=== PATIENT | female | born 1995 | race Caucasian/White ===

== ENCOUNTER → 2023-10-17 14:37 | Outpatient (CLI) | payer OTHER, SELFPAY ==
[2023-10-17 17:04] LABS: Appearance Urine UA CLEAR; Bilirubin Urine UA NEGATIVE (NEGATIVE); Color Urine UA YELLOW; Glucose Urine UA NEGATIVE (Negative); Ketones Urine UA NEGATIVE (NEGATIVE); Leukocyte Esterase Urine UA 1+ (NEGATIVE); Nitrite Urine UA NEGATIVE (Negative); Occult Blood Urine UA NEGATIVE (Negative); Protein Urine UA NEGATIVE (Negative); Specific Gravity Urine UA <=1.005 (1.000-1.035); Urobilinogen Urine UA 0.2 E.U./dL (0.2)
[2023-10-17 17:13] LABS: Bacteria Urine Occasional (0-1); RBC Urine None Seen (0-5/HPF); Squamous Epithelial Cell Urine 5-10 /HPF (0-5/HPF); Urine Volume 10mL (spun); WBC Urine 5-10/HPF (0-5/HPF)
== END ==
PROVIDERS: Visit Provider Student in an Organized Health Care Education/Training Program
DX: Z34.00 Encounter for supervision of normal first pregnancy, unspecified trimester (principal)
CPT/HCPCS: 81003; 81015; 87086

== ENCOUNTER → 2023-10-24 14:01 | Outpatient (CLI) | payer OTHER, SELFPAY ==
[2023-10-24 14:51] LABS: Hemoglobin A1C% w Est Avg Glu 4.8 % (4.0-6.0)
[2023-10-24 14:55] LABS: Add Manual Diff / Slide Review NO; Basophils Absolute Auto 0 /uL (0-100); Basophils Percent Auto 0.2 % (0-2); Eosinophils Absolute Auto 0 /uL (0-450); Eosinophils Percent Auto 0.4 % (2-4); Hematocrit 38.7 % (36-46); Hemoglobin 13.1 g/dL (12.0-16.0); Lymphocytes Absolute Auto 1400 /uL (1100-4500); Lymphocytes Percent Auto 14.1 % (25-40); Mean Corpuscular HGB Conc 33.8 % (30-36); Mean Corpuscular Hemoglobin 31.3 PG (26-34); Mean Corpuscular Volume 92.7 fL (80-100); Monocytes Absolute Auto 500 /uL (0-900); Monocytes Percent Auto 4.9 % (3-14); Neutrophils Absolute Auto 8100 /uL (1500-7000); Neutrophils Percent Auto 80.4 % (50-75); Platelet Count 204 X10^3/uL (150-400); Red Blood Cell Count 4.17 X10^6/uL (4.0-5.2); Red Cell Distribution Width 13.2 % (11.6-14.8); White Blood Cell Count 10.1 X10^3/uL (4.5-11.0)
[2023-10-24 15:09] LABS: Natera Collection Specimen Collected
[2023-10-24 17:13] LABS: Hepatitis B Surface Antigen NEGATIVE s/c (NEGATIVE); Rubella Antibody IgG 29.6 IU/mL (>15)
[2023-10-24 17:21] LABS: HIV 1 & 2 Ab/Ag 4th Gen Combo NEGATIVE (NEGATIVE); Hep C Virus Ab w/Reflex Quant NEGATIVE s/c (NEGATIVE)
[2023-10-25 04:36] LABS: RPR Screen Non Reactive (Non Reactive)
[2023-10-25 09:16] LABS: Varicella IgG Antibody 1798 index (Immune >165)
== END ==
PROVIDERS: Referring Provider Student in an Organized Health Care Education/Training Program; Visit Provider Student in an Organized Health Care Education/Training Program
DX: Z34.00 Encounter for supervision of normal first pregnancy, unspecified trimester (principal); E28.2 Polycystic ovarian syndrome
CPT/HCPCS: 36415; 80055; 83036; 86787; 86803; 86850; 86900; 86901; 87389

== ENCOUNTER 2023-11-06 19:03 | Emergency (ER) | payer OTHER, SELFPAY ==
[2023-11-06 19:09] VITALS: BP 120/72; PULSE 93; RESP 18; TEMP 37; O2SAT 98; BMI 27.8
[2023-11-06 21:13] VITALS: BP 131/75; PULSE 86; RESP 16; O2SAT 100
[2023-11-06 21:14] VITALS: PULSE 86; RESP 16; O2SAT 100
[2023-11-06 21:30] VITALS: PULSE 85; RESP 14; O2SAT 100
[2023-11-06 22:00] VITALS: BP 118/64; PULSE 89; RESP 16; O2SAT 100
--- NOTE | 2023-11-06 22:14 | ED_ITS ---
HPI - Dental/Oral General Chief complaint: Dental/Oral Stated complaint: fever/swollen lymph nodes Time Seen by Provider: 11/06/23 21:14 Mode of arrival: Ambulatory History of Present Illness HPI Narrative: 28-year-old female presents for fevers at home with sore throat and swollen lymph nodes. Also reports associated white spots on her right gums. She was an appointment with her dentist tomorrow, but since she was 12 weeks she decided to present for general evaluation to make sure that nothing would affect the . She denies abdominal pain, cramping, vaginal bleeding, other complaints. Has been taking Tylenol for fever at home. Related Data Home Medications Medication Instructions Recorded Confirmed omega 8-qgu-riw-fish oil 100 cap PO 09/19/23 10/17/23 mg-160 mg-1,000 mg capsule (Fish Oil) vitamin-ferrous sulfate tab PO 09/19/23 10/17/23 27 mg iron-folic acid 0.8 mg tablet Allergies Allergy/AdvReac Type Severity Reaction Status Date / Time No Known Drug Allergies Allergy Unverified 10/17/23 14:26 Patient History Surgical History History of tonsillectomy (~2001) History of tooth extraction Family History Mother PCOS (polycystic ovarian syndrome) Grandmother Coagulopathy Father Hypertension Kidney stones Blood disorder Grandfather Heart disease Sister PCOS (polycystic ovarian syndrome) Sister Iron deficiency anemia Social History marital status: number of children: 0 household members: spouse lives independently: No caregiver/support person: No housing: house pets and animals: Yes (2 dogs) education level: college (some college, working on bachelor's degree) 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 current occupational exposures/hazards: No special wilfred needs: No travel history: recent (domestic; further domestic travel upcoming) seatbelt use: always water heater temp set < 120 deg: Yes working smoke detector in home: Yes fire extinguisher in home: Yes carbon monox detector in home: Yes firearms in home: No do you feel safe at home: Yes Smoking Status: Never smoker second hand exposure: No alcohol intake: former (~1 glass wine/week when not ) substance use type: does not use during the past year weight has: decreased > 10 lbs (intentional w/ diet, exercise, and semaglutide) well-balanced diet: about half the time daily servings fruits/ve-4 caffeine: Yes (small AM cup coffee) Type(s) of exercise: walking Smoking Status: Never smoker Exam Initial Vital Signs Initial Vital Signs: Vital Signs Temperature 98.6 F 11/06/23 19:09 Pulse Rate 93 H 11/06/23 19:09 Respiratory Rate 18 11/06/23 19:09 Blood Pressure 120/72 11/06/23 19:09 Pulse Oximetry 98 11/06/23 19:09 Oxygen Delivery Method Room Air 11/06/23 19:09 Const: Awake, alert, no acute distress, nontoxic appearing HEENT: Mucous membranes moist, mild pharyngeal erythema without edema or exudates, small white nodules on L maxilary gumline Cardiac: regular rate, regular rhythm RESP: unlabored, clear bilaterally, no wheezing GI: Soft, nontender, nondistended, no rebound, no guarding Skin: Warm, Dry, intact, no rashes Neuro: AO x3, CN II-XII grossly intact, moves all extremities Course Vital Signs Vital signs: Vital Signs - 8 hr 11/06/23 19:09 11/06/23 21:13 11/06/23 21:14 Temperature 98.6 F Pulse Rate 93 H 86 86 Respiratory Rate 18 16 16 Blood Pressure 120/72 131/75 Pulse Oximetry 98 100 100 Oxygen Delivery Method Room Air Room Air 11/06/23 21:30 11/06/23 22:00 Temperature Pulse Rate 85 89 Respiratory Rate 14 16 Blood Pressure 118/64 Pulse Oximetry 100 100 Oxygen Delivery Method Room Air MDM - Dental/Oral Lab Data Labs: Urine Dip Bedside Urine Glucose Negative Bedside Urine Bilirubin - Negative Bedside Urine Ketone - Negative Urine Specific [place] 1.010 Bedside Urine Occult Blood - Negative Bedside Urine pH 6.0 Bedside Urine Protein - Negative Bedside Urine Urobilinogen - Negative Bedside Urine Nitrite - Negative Bedside Urine Leukocytes - Negative Esterase MDM Narrative Medical decision making narrative: Well-appearing patient with the above complaint. Physical exam is relatively unremarkable, I do noticed white spots on the gumline, however these do not appear to be acute infection or developing abscess. Dentition is overall good with very few, if any caries. Rapid strep negative, exam not consistent with streptococcal disease. Likely viral in nature. Patient counseled to continue to take Tylenol as needed for fever, to drink plenty of fluids for hydration, but overall anticipate recovery in several days without issue. Counseled to f davidlow up with dentist if the white spots on the gumline persist. Discharge Plan Departure Patient Disposition: Home Clinical Impression: Pharyngitis, Gingivitis Instructions: DI for Pharyngitis/Tonsillopharyngitis -- Adult Activity Restrictions/Additional Instructions: Your exam today is reassuring. I do not see any evidence of an acute bacterial infection at this time. Continue to take Tylenol as needed for fever, use the mouthwash that you have to help prevent infection of your gums and teeth. Make sure to stay hydrated by drinking plenty of fluids. Follow up as needed with your OBGYN Prescriptions: No Action vit-ferrous sulfat-FA 27 mg iron- 0.8 mg tablet PO Fish Oil 100-160-1,000 mg capsule PO Referrals: Miscellaneous,Doctor, MD [Primary Care Provider] - Stand Alone Forms: Patient Portal/API, Work Release Note
== END 2023-11-06 22:24 | disposition home or self-care (01) ==
PROVIDERS: Emergency Provider Emergency Medicine
DX: J02.9 Acute pharyngitis, unspecified (principal); K05.10 Chronic gingivitis, plaque induced
CPT/HCPCS: 81003; 99282

== ENCOUNTER 2023-11-10 10:54 | Emergency (ER) | payer OTHER, SELFPAY ==
[2023-11-10 11:24] VITALS: BP 140/91; PULSE 102; RESP 20; TEMP 36.6; O2SAT 99; BMI 27.3
== END 2023-11-10 11:35 | disposition left against medical advice (07) ==
PROVIDERS: Emergency Provider Emergency Medicine
CPT/HCPCS: 99281

== ENCOUNTER → 2024-01-02 15:07 | Outpatient (CLI) | payer OTHER, SELFPAY ==
--- NOTE | 2024-01-02 15:08 | DI.US.S_ITS ---
PROCEDURE: US OB >= 14 WEEKS FETUS INDICATIONS: 20 week Anatomy Scan OUTSIDE/PRIOR DATING DATA: Last menstrual period (LMP): 08/13/2023. LMP-based estimated date of delivery (JENNYFER): 05/19/2024. First dating scan (date and location): 10/17/2023. Estimated date of delivery (JENNYFER) from first dating scan: 05/16/2024. The calculations are made using the clinical JENNYFER of 05/19/2024. TECHNIQUE: Real-time scanning was performed of the fetus, with image documentation and biometric measurements. COMPARISON: None. FINDINGS: General: A single living intrauterine gestation is present. Presentation: Breech Placenta: Placental position is anterior , without previa. Amniotic fluid index: 17.6 cm, normal range is 5-24 cm. Single deepest vertical pocket is 5 cm. heart rate: 153 beats per minute. Maternal cervical canal: 3.4 cm long. Normal lower limit is 2.5 cm. biometrics: Biparietal diameter: 5.2 cm 21 weeks 5 days Head circumference: 18.7 cm 21 weeks 0 days Abdominal circumference: 17.9 cm 22 weeks 5 days Femur length: 3.5 cm 21 weeks 0 days Clinically estimated gestational age: 20 weeks 2 days Composite gestational age from present scan: 21 weeks 4 days Estimated weight and percentile: 450 g 99th percentile Anatomic survey: Neuro: Ventricles are non-dilated at less than 10 mm. Cisterna magna is normal at 3-11 mm. Cerebellum is normal in size and morphology. Nuchal skin fold: Normal at less than 6 mm between 14-21 weeks gestational age. Face: Nose and lips, facial profile are normal. Spine: No evidence for spina bifida. Heart: 4-chambered heart is present, with normal ventricular outflow tracts. Diaphragm: Diaphragm is intact. Stomach: Left-sided stomach is present. Kidneys: No hydronephrosis. Normal is less than 5 mm in 2nd trimester, less than 7 mm in 3rd trimester. Cord: 3-vessel cord has orthotopic insertion. Bladder: Normal in size. Extremities: All 4 extremities identified. IMPRESSION: Live intrauterine with gestational age today of 21 weeks 4 days. Anatomy is within normal limits. weight is at the 99th percentile. Recommend continued interval follow-up. We strive to produce accurate, complete, and clear reports of imaging services. To assist us in improving patient care, this report was composed using standard report templates and voice recognition software. Therefore, it may contain abnormal punctuation, insertions and/or omissions. Occasional wrong-word or sound-alike substitutions may occur. Though we review the report and make efforts to correct it, we do recommend that the report be read carefully in proper context to recognize any text inaccuracies. Dictated by: Anabelle Page M.D. on 01/02/2024 at 20:14 Approved by: Anabelle Page M.D. on 01/02/2024 at 20:16
== END ==
LOC: US 15:07
PROVIDERS: Referring Provider Student in an Organized Health Care Education/Training Program; Visit Provider Student in an Organized Health Care Education/Training Program
DX: Z36.89 Encounter for other specified antenatal screening (principal); Z3A.21 21 weeks gestation of pregnancy
CPT/HCPCS: 76811

== ENCOUNTER → 2024-02-06 09:13 | Outpatient (CLI) | payer OTHER, SELFPAY ==
[2024-02-06 12:04] LABS: GTT (PREG) 1 Hour PP 50gm Dose 119 mg/dL (76-139)
== END ==
PROVIDERS: Referring Provider Student in an Organized Health Care Education/Training Program; Visit Provider Student in an Organized Health Care Education/Training Program
DX: Z34.02 Encounter for supervision of normal first pregnancy, second trimester (principal); Z3A.25 25 weeks gestation of pregnancy
CPT/HCPCS: 82950

== ENCOUNTER → 2024-03-12 07:24 | Outpatient (CLI) | payer OTHER, SELFPAY ==
--- NOTE | 2024-03-12 07:25 | DI.US.S_ITS ---
PROCEDURE: US OB LIMITED INDICATIONS: LGA OUTSIDE/PRIOR DATING DATA: Last menstrual period (LMP): 08/13/2023. LMP-based estimated date of delivery (JENNYFER): 05/19/2024. First dating scan (date and location): 10/17/2023. Estimated date of delivery (JENNYFER) from first dating scan: 05/16/2024 The calculations are made using the clinical JENNYFER of 05/19/2024. TECHNIQUE: Real-time scanning was performed of the fetus, with image documentation. COMPARISON: [facility], , OB >= 14 WEEKS FETUS, 01/02/2024, 15:18. FINDINGS: A single living intrauterine gestation is present. Presentation: Vertex. Placenta: Placental position is anterior, without previa. Amniotic fluid index: 16.2 cm, normal range is 5-24 cm. Single deepest vertical pocket is 6.4 cm. heart rate: 130 beats per minute. Maternal cervical canal: 3.0 cm long. Normal lower limit is 2.5 cm. Clinically estimated gestational age: 30 weeks 2 days Estimated gestational age from initial scan: 32 weeks 2 days BPD: 7.9 cm 31 weeks 5 days HC: 29.8 cm 33 weeks 0 days AC: 28.8 cm 32 weeks 5 days FL: 6.1 cm 31 weeks 4 days Estimated weight 1958 g, 95th percentile.. IMPRESSION: Single live intrauterine with gestational age today of 32 weeks 2 days. Estimated weight is at the 95th percentile. Recommend continued interval follow-up for macrosomia. It is noted prior estimated weight percentile was 99th. Dictated by: Anabelle Page M.D. on 03/12/2024 at 23:06 Approved by: Anabelle Page M.D. on 03/12/2024 at 23:08
== END ==
LOC: US 07:24
PROVIDERS: Referring Provider Student in an Organized Health Care Education/Training Program; Visit Provider Student in an Organized Health Care Education/Training Program
DX: Z36.88 Encounter for antenatal screening for fetal macrosomia (principal); Z3A.32 32 weeks gestation of pregnancy
CPT/HCPCS: 76815

== ENCOUNTER → 2024-03-30 12:49 | Outpatient (CLI) | payer OTHER, SELFPAY ==
--- NOTE | 2024-03-30 12:51 | DI.US.S_ITS ---
PROCEDURE: US OB LIMITED INDICATIONS: LGA OUTSIDE/PRIOR DATING DATA: Last menstrual period (LMP): 08/13/23. LMP-based estimated date of delivery (JENNYFER): 05/19/24. First dating scan (date and location): 10/17/23. Estimated date of delivery (JENNYFER) from first dating scan: 05/16/24. The calculations are made using the working JENNYFER of 05/19/24. TECHNIQUE: Real-time scanning was performed of the fetus, with image documentation and biometric measurements. Endovaginal scanning: Not performed COMPARISON: [facility], OB LIMITED, 03/12/2024, 7:43. FINDINGS: General: A single living intrauterine gestation is present. Presentation: Vertex. Placenta: Placental position is anterior , without previa. Amniotic fluid index: 17.1 cm, normal range is 5-24 cm. Single deepest vertical pocket is 7.3 cm. heart rate: 149 beats per minute. Maternal cervical canal: Closed and 3.0 cm long. Normal lower limit is 2.5 cm. biometrics: Biparietal diameter: 9.1 cm, 36 weeks five days Head circumference: 32.4 cm, 36 weeks four days Abdominal circumference: 33.0 cm, 36 weeks six days Femur length: 6.3 cm, 32 weeks three days Clinically estimated gestational age: 32 weeks six days Composite gestational age from present scan: 35 weeks five days Estimated weight and percentile: 2746 g, 99th percentile Other: Not applicable. IMPRESSION: Single living intrauterine with estimated weight at the 99th percentile. Composite gestational age from current biometric measurements is greater than two weeks ahead of the clinically estimated gestational age. Closed cervix and normal amniotic fluid volume. We strive to produce accurate, complete, and clear reports of imaging services. To assist us in improving patient care, this report was composed using standard report templates and voice recognition software. Therefore, it may contain abnormal punctuation, insertions and/or omissions. Occasional wrong-word or sound-alike substitutions may occur. Though we review the report and make efforts to correct it, we do recommend that the report be read carefully in proper context to recognize any text inaccuracies. Dictated by: Loreto Tsang M.D. on 03/30/2024 at 17:42 Approved by: Loreto Tsang M.D. on 03/30/2024 at 17:47
== END ==
PROVIDERS: Referring Provider Student in an Organized Health Care Education/Training Program; Visit Provider Student in an Organized Health Care Education/Training Program
DX: O36.63X0 Maternal care for excessive fetal growth, third trimester, not applicable or unspecified (principal); Z3A.35 35 weeks gestation of pregnancy
CPT/HCPCS: 76815

== ENCOUNTER → 2024-04-20 08:16 | Outpatient (CLI) | payer OTHER, SELFPAY ==
--- NOTE | 2024-04-20 08:18 | DI.US.S_ITS ---
PROCEDURE: US OB LIMITED INDICATIONS: Growth Scan - LGA OUTSIDE/PRIOR DATING DATA: Working JENNYFER is 05/19/2024 based on LMP. The 1st dating scan was 10/17/2023 TECHNIQUE: Real-time scanning was performed of the fetus, with image documentation and biometric measurements. COMPARISON: [facility], OB LIMITED, 03/30/2024, 12:55. FINDINGS: General: A single living intrauterine gestation is present. Presentation: Vertex. Placenta: Placental position is anterior , without previa. Amniotic fluid index: 18.4, normal range is 5-24 cm. Single deepest vertical pocket is 7.5 cm heart rate: 149 beats per minute. Maternal cervical canal: Not well seen biometrics: Biparietal diameter: 9.5 cm, 38 weeks and 4 days Head circumference: 34.7 cm, 40 weeks and 2 days Abdominal circumference: 36.3 cm, 40 weeks and 2 days Femur length: 6.9 cm, 35 weeks and 4 days Clinically estimated gestational age: 35 weeks and 6 days Composite gestational age from present scan: 38 weeks and 5 days Estimated weight and percentile: 3696 g, 99% Other: Not applicable. IMPRESSION: Living intrauterine gestation in vertex presentation. Large for gestational age with EFW of 99% driven by the head circumference and abdominal circumference in particular. Femur length matches the clinically estimated gestational age. Normal JENNY. Dictated by: Ted Villar M.D. on 04/20/2024 at 10:14 Approved by: Ted Villar M.D. on 04/20/2024 at 10:17
== END ==
PROVIDERS: Referring Provider Student in an Organized Health Care Education/Training Program; Visit Provider Student in an Organized Health Care Education/Training Program
DX: O36.60X0 Maternal care for excessive fetal growth, unspecified trimester, not applicable or unspecified (principal); Z3A.36 36 weeks gestation of pregnancy
CPT/HCPCS: 76815

== ENCOUNTER → 2024-04-23 16:22 | Outpatient (CLI) | payer OTHER, SELFPAY ==
[2024-04-24 12:45] LABS: Strep Grp B PCR NEG for Grp B Strep
== END ==
PROVIDERS: Visit Provider Student in an Organized Health Care Education/Training Program
DX: Z34.93 Encounter for supervision of normal pregnancy, unspecified, third trimester (principal); Z3A.36 36 weeks gestation of pregnancy
CPT/HCPCS: 87653

== ENCOUNTER 2024-04-30 16:28 | Outpatient (CLI) | payer OTHER, SELFPAY ==
[2024-04-30] MEDS: LACTATED RINGERS 1,000 ML 1000 ML IV (17:06)
== END 2024-04-30 18:09 | disposition home or self-care (01) ==
LOC: OB 05-01 06:23
PROVIDERS: PCP Internal Medicine; Referring Provider Student in an Organized Health Care Education/Training Program; Visit Provider Student in an Organized Health Care Education/Training Program
DX: O26.893 Other specified pregnancy related conditions, third trimester (principal); R11.2 Nausea with vomiting, unspecified; R19.7 Diarrhea, unspecified; Z3A.37 37 weeks gestation of pregnancy
CPT/HCPCS: 36415; 59025; 96360; G0378; G0379

== ENCOUNTER → 2024-05-04 08:25 | Outpatient (CLI) | payer OTHER, SELFPAY ==
--- NOTE | 2024-05-04 08:26 | DI.US.S_ITS ---
PROCEDURE: US OB LIMITED INDICATIONS: LGA OUTSIDE/PRIOR DATING DATA: Last menstrual period (LMP): 08/13/2023 LMP-based estimated date of delivery (JENNYFER): 05/19/2024 First dating scan (date and location): 10/17/2023 Estimated date of delivery (JENNYFER) from first dating scan: 05/16/2024. The calculations are made using the working JENNYFER of 05/19/2024. TECHNIQUE: Real-time scanning was performed of the fetus, with image documentation and biometric measurements. Endovaginal scanning: Not performed COMPARISON: [facility], OB LIMITED, 04/20/2024, 8:40. FINDINGS: General: A single living intrauterine gestation is present. Presentation: Vertex Placenta: Placental position is anterior, without previa. Amniotic fluid index: 21.1 cm, normal range is 5-24 cm. Single deepest vertical pocket is 9.5 cm. heart rate: 139 beats per minute. Maternal cervical canal: Not well seen. biometrics: Biparietal diameter: 9.6 cm, 39 weeks, 3 days. Head circumference: 35.0 cm, 40 weeks, 5 days. Abdominal circumference: 36.3 cm, 40 weeks, 1 day. Femur length: 7.5 cm, 38 weeks, 3 days. Clinically estimated gestational age: 37 weeks, 6 days. Composite gestational age from present scan: 39 weeks, 5 days. Estimated weight and percentile: 3887 g, 95%. IMPRESSION: 1. Single live intrauterine gestation with fetus in vertex presentation. heart rate is 139 beats per minute. Normal JENNY at 21.1 cm. 2. Estimated weight is at 95%. No gross abnormality is seen. We strive to produce accurate, complete, and clear reports of imaging services. To assist us in improving patient care, this report was composed using standard report templates and voice recognition software. Therefore, it may contain abnormal punctuation, insertions and/or omissions. Occasional wrong-word or sound-alike substitutions may occur. Though we review the report and make efforts to correct it, we do recommend that the report be read carefully in proper context to recognize any text inaccuracies. Dictated by: Dante Abel M.D. on 05/04/2024 at 13:45 Approved by: Dante Abel M.D. on 05/04/2024 at 13:47
== END ==
PROVIDERS: PCP Internal Medicine; Referring Provider Student in an Organized Health Care Education/Training Program; Visit Provider Student in an Organized Health Care Education/Training Program
DX: O36.60X0 Maternal care for excessive fetal growth, unspecified trimester, not applicable or unspecified (principal)
CPT/HCPCS: 76815

== ENCOUNTER 2024-05-11 23:57 | Inpatient (IN) | payer OTHER, SELFPAY ==
[2024-05-12] MEDS: LACTATED RINGERS 500 ML 1000 ML IV (00:50)
[2024-05-12 01:03] LABS: Add Manual Diff / Slide Review NO; Basophils Absolute Auto 100 /uL (0-100); Basophils Percent Auto 0.5 % (0-2); Eosinophils Absolute Auto 0 /uL (0-450); Eosinophils Percent Auto 0.2 % (2-4); Hematocrit 41.2 % (36-46); Hemoglobin 13.7 g/dL (12.0-16.0); Lymphocytes Absolute Auto 1700 /uL (1100-4500); Lymphocytes Percent Auto 10.4 % (25-40); Mean Corpuscular HGB Conc 33.2 % (30-36); Mean Corpuscular Hemoglobin 30.5 PG (26-34); Mean Corpuscular Volume 91.8 fL (80-100); Monocytes Absolute Auto 1200 /uL (0-900); Monocytes Percent Auto 7.8 % (3-14); Neutrophils Absolute Auto 13000 /uL (1500-7000); Neutrophils Percent Auto 81.1 % (50-75); Platelet Count 223 X10^3/uL (150-400); Red Blood Cell Count 4.49 X10^6/uL (4.0-5.2); Red Cell Distribution Width 13.9 % (11.6-14.8)
[2024-05-12] MEDS: LACTATED RINGERS 1,000 ML 100 ML IV (01:15)
--- NOTE | 2024-05-12 02:04 | PM.AN.REGBLK ---
[facility] Pre-procedure Procedure: Continuous Lumbar Epidural for L&D Attending OB provider: Padmini Burr PMH/ROS narrative: in labor, requesting epidural for labor pain management PSH/Anesthesia history narrative: Negative Exam narrative: See pre-anesthesia note ASA Class: III Labs: Hct 41.2 % (36-46) 05/12/24 00:45 Plt Count 223 X10^3/uL (150-400) 05/12/24 00:45 Medications: Current Medications Generic Name Dose Route Start Last Admin Trade Name Freq PRN Reason Stop Dose Admin Carboprost Tromethamine 250 mcg 05/12/24 00:25 Carboprost 250 Mcg/Ml Ampul IM Q90M PRN Bleeding Diphenhydramine HCl 25 mg 05/12/24 01:17 Diphenhydramine 50 Mg/Ml Vial IV Q10M PRN Pruritis Ephedrine Sulfate 5 mg 05/12/24 01:17 Ephedrine 50 Mg/Ml Vial IV Q5M PRN Blood pressure decrease more than 20% of baseline. Ephedrine Sulfate 10 mg 05/12/24 01:17 Ephedrine 50 Mg/Ml Vial IV Q5M PRN Blood pressure decrease more than 20% of baseline. Oxytocin/Lactated Ringer's 30 unit in 500 mls @ 200 mls/hr 05/12/24 00:25 Oxytocin Premix IV CONT PRN Bleeding Protocol Tranexamic Acid 1,000 mg/ 100 mls @ 600 mls/hr 05/12/24 00:25 Sodium Chloride IV NOW PRN Bleeding Lactated Ringer's 1,000 mls @ 100 mls/hr 05/12/24 00:30 05/12/24 01:15 Lactated Ringers IV 05/12/24 10:29 100 mls/hr CONT MELANIE Administration Lactated Ringer's 1,000 mls @ 1,000 mls/hr 05/12/24 01:17 Lactated Ringers IV 05/12/24 02:16 BOLUS ONE FENT 2MCG/ML BUPIV 0.125% EPI 200 mcg in 100 mls @ 8 mls/hr 05/12/24 01:30 Fentanyl/Bupiv/Ns 2mcg/Ml - 0.125% EPIDURAL CONT MELANIE Lidocaine HCl 20 ml 05/12/24 00:25 Lidocaine 1% 20 Ml INJ INTRA-OP PRN Post Delivery Methylergonovine Maleate 0.2 mg 05/12/24 00:25 Methylergonovine 0.2 Mg Tablet PO Q6HR PRN Heavy Bleeding Methylergonovine Maleate 0.2 mg 05/12/24 00:25 Methylergonovine 0.2 Mg/Ml Vial IM NOW PRN Bleeding Mineral Oil 30 ml 05/12/24 00:25 Mineral Oil 30 Ml Udc TOP PRN PRN Version Misoprostol 800 mcg 05/12/24 00:25 Misoprostol 200 Mcg Tablet CO NOW PRN Bleeding Misoprostol 400 mcg 05/12/24 00:25 Misoprostol 200 Mcg Tablet SL NOW PRN Bleeding Nalbuphine HCl 2.5 mg 05/12/24 01:17 Nalbuphine 20 Mg/Ml Ampul IV Q10M PRN Pruritis Naloxone HCl 0.2 mg 05/12/24 00:25 Naloxone 0.4 Mg/Ml Vial IV Q2MIN PRN Opiate Reversal Oxytocin 10 unit 05/12/24 00:25 Oxytocin 10 Unit/Ml Vial IM NOW PRN Bleeding Allergies: Allergies Allergy/AdvReac Type Severity Reaction Status Date / Time No Known Drug Allergies Allergy Verified 05/07/24 15:52 Procedure Insertion date: 05/12/24 Insertion time: 01:23 Prep/Local: betadine x3 (Chlorhexadine scrub) and 1% lidocaine Interspace: L3/L4 Patient position: sitting Needle: 17 gauge Tuohy Loss of resistance with: saline ERVIN at (cm): 8 Catheter placed at SKIN (cm): 14 Catheter in SPACE (cm): 5 Sensory level: T10. Note: DP with 27g spinal needle. Insertion: No CSF, No Blood, No Paresthesia with insertion, No Paresthesia with injection and No Test dose reaction Initial Medications TEST DOSE time: 01:42 TEST DOSE: 1.5% lidocaine with epinephrine 1:200k (mL): 3 BOLUS DOSE time: 01:45 BOLUS DOSE (mL): 5 BOLUS DOSE med: other (Fentanyl 100mcg, 0.25% bupivacaine 5ml) Infusion INFUSION: 0.125% bupivacaine and with fentanyl 2 mcg/mL Initial rate (mL/hr): 8 Post-procedure Anesthesia date START: 05/11/24 Anesthesia time START: 01:10 Anesthesia date END: 05/12/24 Anesthesia time END: 04:25 Post-procedure Anesthesia Assessment: Yes CV function: HR/BP stable, Yes Resp function: RR/sat/airway adequate, Yes Post-op hydration adequate, Yes Pain control adequate, Yes Nausea & vomiting absent, Yes Temperature > 36 C, Yes Mental status appropriate and No Anesthesia complications
--- NOTE | 2024-05-12 04:46 | P.HPOB_ITS ---
OB HPI Date/Time Date of admission: 05/12/24 Date Patient Seen: 05/12/24 History of Present Condition Chief complaint: Possible labor JENNFYER Calculator 2 Estimated Delivery Date Method Current WG Current Estimate 05/19/24 LMP (Certain) 39w 0d Narrative: Patient presents with painful contractions. Membranes intact. care: good care Dating criteria OB: LMP confirmed by 1st trimester US Ultrasounds: normal 1st trimester US and normal mid trimester US Obstetrical complications: none Medical complications OB: none Preadmission Labs Last OB Lab Results: 2 Blood Type A Positive 05/12/24 00:45 Antibody Screen Negative 05/12/24 00:45 Hct 41.2 % (36-46) 05/12/24 00:45 Hgb 13.7 g/dL (12.0-16.0) 05/12/24 00:45 Hep Bs Antigen Negative s/c (NEGATIVE) 10/24/23 14:08 Hepatitis C Antibody Negative s/c (NEGATIVE) 10/24/23 14:08 Rubella Antibody 29.6 IU/mL (>15) 10/24/23 14:08 VZV IgG Antibody 1798 index (Immune >165) 10/24/23 14:08 Glucose 1 Hr 50 gm 119 mg/dL (76-139) 02/06/24 10:56 Hemoglobin A1c 4.8 % (4.0-6.0) 10/24/23 14:08 Group B Strep (PCR) Neg for grp b strep 04/23/24 16:22 Evaluation Evaluation Baseline heart rate: 145 Variability: Average (6-10) monitor accelerations: Present Monitor Decelerations: Absent Contraction Frequency (minutes): 2 Uterine Contraction Intensity: Strong/Firm Category of Tracing: Reactive Status: Category l Dilation (cm): 7 Effacement (%): 100 PFSH Surgical History History of tonsillectomy (~2001) History of tooth extraction Family History Mother PCOS (polycystic ovarian syndrome) Grandmother Coagulopathy Father Hypertension Kidney stones Blood disorder Grandfather Heart disease Sister PCOS (polycystic ovarian syndrome) Sister Iron deficiency anemia Social History marital status: number of children: 0 household members: spouse lives independently: No caregiver/support person: No housing: house pets and animals: Yes (2 dogs) education level: college (some college, working on bachelor's degree) 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 current occupational exposures/hazards: No special wilfred needs: No travel history: recent (domestic; further domestic travel upcoming) seatbelt use: always water heater temp set < 120 deg: Yes working smoke detector in home: Yes fire extinguisher in home: Yes carbon monox detector in home: Yes firearms in home: No do you feel safe at home: Yes Smoking Status: Never smoker second hand exposure: No alcohol intake: former (~1 glass wine/week when not ) substance use type: does not use during the past year weight has: decreased > 10 lbs (intentional w/ diet, exercise, and semaglutide) well-balanced diet: about half the time daily servings fruits/ve-4 caffeine: Yes (small AM cup coffee) Type(s) of exercise: walking Meds Home Medications and Allergies Home Medications Medication Instructions Recorded Confirmed Type omega 8-pgj-wir-fish oil 100 1 cap PO DAILY 09/19/23 05/12/24 History mg-160 mg-1,000 mg capsule (Fish Oil) vitamin-ferrous sulfate 1 tab PO DAILY 09/19/23 05/12/24 History 27 mg iron-folic acid 0.8 mg tablet Allergies Allergy/AdvReac Type Severity Reaction Status Date / Time No Known Drug Allergies Allergy Verified 05/07/24 15:52 OB Exam Vital signs Blood Pressure: 126/84 Pulse Rate: 93 Temperature: 96.8 F Objective Labs 05/12/24 00:45 Labs: Laboratory Results - last 24 hr 05/12/24 00:45 WBC 16.0 H RBC 4.49 Hgb 13.7 Hct 41.2 MCV 91.8 MCH 30.5 MCHC 33.2 RDW 13.9 Plt Count 223 Neut % (Auto) 81.1 H Lymph % (Auto) 10.4 L Moca % (Auto) 7.8 Eos % (Auto) 0.2 L Baso % (Auto) 0.5 Neut # (Auto) 61879 H Lymph # (Auto) 1700 Moca # (Auto) 1200 H Eos # (Auto) 0 Baso # (Auto) 100 Blood Type A Positive Antibody Screen Negative Assessment and Plan Assessment and Plan Assessment and Plan narrative: G1 at 39 wks uncomplicated. GBS negative. Active labor. SVE /0. -admit for spontaneous labor -patient desires epidural Time-Based Coding :: 30 minutes spent with patient and on the chart (including review of chart, obtaining history, exam, reviewing outside data, placing orders, documenting exam and treatment plan, and counseling patient) on 05/12/2024.
[2024-05-12 04:52] VITALS: BP 126/84; PULSE 93; TEMP 36
--- NOTE | 2024-05-12 04:53 | PM.OBPRVD ---
Labor & Delivery Delivery date: 05/12/24 Delivery Time: 04:25 Intrapartal Events: None Cervical ripening method: none Induction method: none Delivery augmentation: rupture of membranes Delivery monitor: external FHT Route of delivery: L&D Laceration Description: Perineal - 1st Degree Delivery repair: vicryl Estimated blood loss (mL): 200 Anesthesia Type: Epidural Narrative: This is a 28 yo G1 who presented in spontaneous, active labor. Progressed to complete without intervention. Patient elected for epidural. With ongoing pushing efforts, she brought the baby to the perineum in OA position. Head delivered with delay in delivery of shoulder. Patient was repositioned into [place] and baby delivered with next pushing effort. Vigorous male . Cord was clamped and cut by doctor at 3 minutes of life. Placenta delivered with external fundal massage and gentle traction. Pitocin started following delivery of placenta. First degree perineal laceration repaired with vicryl suture. EBL 200. Plan for aftercare: Routine care
[2024-05-12] MEDS: TRANEXAMIC ACID 1,000 MG in SODIUM CHLORIDE 0.9% 100 ML 600 MG IV (05:56)
[2024-05-12] MEDS: OXYTOCIN PREMIX 30 UNIT/500 ML PLAST..BAG 200 UNIT IV (05:58)
[2024-05-13] MEDS: IBUPROFEN 600 MG TABLET PO (00:50)
[2024-05-13] MEDS: ACETAMINOPHEN 325 MG TABLET 650 MG PO (00:50)
--- NOTE | 2024-05-13 08:05 | P.DS_ITS ---
Discharge Providers Provider Date of admission: 05/11/24 23:57 Discharge Date: 05/13/24 Primary care physician: Padmini Burr MD Consults: 05/12/24 00:25 Consult to Anesthesiology Urgent Comment: Consulting Provider: Anesthesiologist Reason for consultation: Epidural 05/13/24 05:36 Consult to Battery Recharger Routine Comment: Discharge provider: Padmini Burr MD Summary Hospital Course Date Patient Seen: 05/13/24 Time Patient Seen: 07:45 Diagnoses: Term vaginal delivery Hospital Course: This is a 28 yo G1 now P1 who delivered vaginally following spontaneous labor. complicated by macrosomia. Delivery uncomplicated. GBS negative. Mom is recovering well. Moderate lochia. Pain well controlled. Ambulating without difficulty. Peripartum Data Delivery Method: Natural Vaginal Laceration Description: Perineal - 2nd Degree complications: none Status at Discharge Cognitive/behavioral status at discharge: oriented Functional status at discharge: independent ambulation Overall status at discharge: patient is back to baseline Time Spent with Patient Time attestation: Total time spent providing and/or coordinating discharge services: Time spent: Greater than 30 minutes Objective Labs 05/12/24 00:45 Exam Narrative Exam Narrative: NAD, breathing easily, fundus firm. Discharge Plan Discharge Plan Patient Disposition: Home Discharge orders & Medications Prescriptions: Continued vit-ferrous sulfat-FA 27 mg iron- 0.8 mg tablet 1 tab PO DAILY Fish Oil 100-160-1,000 mg capsule 1 cap PO DAILY Follow up/Referrals: Padmini Burr MD [Primary Care Provider] - Visit Report/Discharge Packet Stand Alone Forms: Patient Portal/API, Stroke Signs & Symptoms Discharge Data Primary Care Provider: Padmini Burr
[2024-05-13 10:35] VITALS: BP 97/50; PULSE 75; RESP 15; TEMP 36
== END 2024-05-13 10:20 | disposition home or self-care (01) | DRG 807 ==
PROVIDERS: Admitting Provider Obstetrics & Gynecology; PCP Student in an Organized Health Care Education/Training Program; Referring Provider Obstetrics & Gynecology; Visit Provider Obstetrics & Gynecology
DX: O66.0 Obstructed labor due to shoulder dystocia (principal); Z37.0 Single live birth; O70.0 First degree perineal laceration during delivery; Z3A.39 39 weeks gestation of pregnancy
CPT/HCPCS: 36415; 59050; 59400; 85025; 86850; 86900; 86901; G0379; J2590; J3010